=== PATIENT | female | born 1955 | race Caucasian/White ===

== ENCOUNTER 2025-03-18 19:18 | Inpatient (IN) | payer MEDICARE, BC ==
[~2025-03-18] VITALS: Ht 165.1 cm; Wt 68.0 kg
[2025-03-18 20:41] LABS: PLATELET COUNT (AUTO) 246 K/uL (150-450); RED BLOOD CELL COUNT(AUTO) 4.65 MIL/uL (4.0-5.2); RED CELL DISTRIBUTION WIDTH 15.1 % (11.5-15.0); WHITE BLOOD COUNT (AUTO) 5.3 K/uL (4.3-11.0)
[2025-03-18 20:51] LABS: ASPARTATE AMINOTRANSFERASE 9 U/L (15-37); CALCIUM, SERUM 8.7 mg/dL (8.5-10.1); CREATININE 0.6 mg/dL (0.6-1.3); SODIUM SERUM 140 mmol/L (136-145); TOTAL PROTEIN, SERUM 7.0 g/dL (6.4-8.2); UREA NITROGEN, BLOOD 17 mg/dL (7-18)
[2025-03-18 22:14] LABS: APPEARANCE,URINE CLEAR (CLEAR); BLOOD, URINE 1+ Ery/uL (NEGATIVE); LEUKOCYTE ESTERASE ,URINE 1+ (NEGATIVE); NITRITE, URINE NEGATIVE (NEGATIVE); UGLUCOSE NEGATIVE (NEGATIVE)
[2025-03-18 22:26] LABS: ADD URINE CULTURE YES; SQUAMOUS EPITHELIAL CELL,UR Few /HPF (None Seen)
[2025-03-18 22:31] LABS: AMPHETAMINE, URINE NEGATIVE (NEGATIVE); BARBITURATE, URINE NEGATIVE (NEGATIVE); BENZODIAZEPINE, URINE POSITIVE (NEGATIVE); CANNABINOID, URINE NEGATIVE (NEGATIVE); COCCAINE, URINE NEGATIVE (NEGATIVE); OPIATE, URINE NEGATIVE (NEGATIVE)
[2025-03-18] MEDS ORDERED: ACET325C7 PO (22:31)
[2025-03-18] MEDS ORDERED: DIVA250T4 PO (22:31)
[2025-03-18] MEDS ORDERED: BUDE0.5A4 NEB (22:31)
[2025-03-18] MEDS ORDERED: BACL5TAB PO (22:31)
[2025-03-18] MEDS ORDERED: DONE5TAB34 PO ×2 (22:31)
[2025-03-18] MEDS ORDERED: GABA-532 PO (22:31)
[2025-03-18] MEDS ORDERED: ALPR0.5T PO ×2 (22:46)
[2025-03-18] MEDS ORDERED: PANT40TA49 PO (22:46)
[2025-03-18] MEDS ORDERED: MEMA5TAB42 PO (22:46)
[2025-03-18] MEDS ORDERED: TEMA30CA PO (22:46)
[2025-03-18] MEDS ORDERED: ONDA4TAB11 PO (22:46)
[2025-03-18] MEDS ORDERED: VENL75TA4 PO (22:46)
[2025-03-18] MEDS ORDERED: RIZA10TA27 PO (22:46)
[2025-03-19] VITALS (8 sets, daily range): BP systolic 117–140; BP diastolic 78–92; TEMP 97.8–97.9; O2SAT 97–99
[2025-03-19] MEDS ORDERED: CEFTRIAXONE 1 G in IV D5W 50 ML IV ONE
[2025-03-19] MEDS ORDERED: NITROFURANTOIN/MONOHYDRATE MACROCRYSTALS 100 MG CAPSULE ONE (00:55)
[2025-03-19] MEDS: NITROFURANTOIN/MONOHYDRATE MACROCRYSTALS 100 MG CAPSULE PO ONE (01:02)
[2025-03-19] MEDS: LIDOCAINE 5% (PATCH) 1 EA PATCH TP SCH ×2 (01:30)
[2025-03-19] MEDS ORDERED: POLYVINYL ALCOHOL 15 ML BOTTLE EACHEYE PRN ×2 (01:30→15:00)
[2025-03-19] MEDS ORDERED: ZOLPIDEM TARTRATE 5 MG TABLET PO PRN ×2 (02:00)
[2025-03-19] MEDS ORDERED: MAGNESIUM HYDROXIDE 30 ML UDC PO PRN (02:00)
[2025-03-19] MEDS ORDERED: MAG HYDROX/AL HYDROX/SIMETH 30 ML UDC PO PRN (02:00)
[2025-03-19] MEDS: BLOOD SUGAR DIAGNOSTIC 1 EACH STRIP IN ONE (02:10)
[2025-03-19] MEDS: LORAZEPAM 1 MG TABLET PO PRN (02:43)
[2025-03-19] MEDS ORDERED: RIZATRIPTAN BENZOATE PO SCH (03:00)
[2025-03-19] MEDS: CHOLECALCIFEROL 1,000 UNIT TABLET (VIT D3) PO SCH (08:28)
[2025-03-19] MEDS: BACLOFEN (10 MG) 10 MG TABLET PO SCH (08:28)
[2025-03-19] MEDS: NITROFURANTOIN/MONOHYDRATE MACROCRYSTALS 100 MG CAPSULE PO SCH (08:28)
[2025-03-19] MEDS: PANTOPRAZOLE 40 MG TABLET.DR PO SCH (08:28)
[2025-03-19] MEDS: MULTIVITAMINS,THERAGRAN 1 UDTAB TABLET PO SCH (08:28)
[2025-03-19] MEDS: MEMANTINE HCL 5 MG TABLET PO SCH (08:28)
[2025-03-19] MEDS: LISINOPRIL (20MG) 20 MG TABLET PO SCH (08:29)
[2025-03-19] MEDS: PROSOURCE / PROSTAT (PYXIS) 30 ML UDC GT SCH (08:57)
[2025-03-19] MEDS: DONEPEZIL 5 MG TABLET PO SCH ×2 (08:58→21:20)
[2025-03-19] MEDS ORDERED: POLY15DR31 EACHEYE (09:11)
[2025-03-19] MEDS ORDERED: AMIN30LI2 PO (09:11)
[2025-03-19] MEDS ORDERED: MULT-213 PO (09:11)
[2025-03-19] MEDS ORDERED: CHOL100062 PO (09:11)
[2025-03-19] MEDS ORDERED: LIDO1ADH82 TD (09:11)
[2025-03-19] MEDS ORDERED: MEGE400O6 PO (09:11)
[2025-03-19] MEDS ORDERED: LISI20TA30 PO (09:11)
[2025-03-19] MEDS: OLANZAPINE 10 MG VIAL IM ONE (09:18)
[2025-03-19] MEDS ORDERED: DIVALPROEX SODIUM 250 MG TABLET.DR PO SCH (10:00)
[2025-03-19] MEDS ORDERED: LORAZEPAM 1 MG TABLET PO PRN (10:30)
[2025-03-19] MEDS: BUDESONIDE RESPULE INH 0.5 MG/2 ML AMPUL.NEB NEB SCH (10:31)
[2025-03-19] MEDS: DIVALPROEX SODIUM 125 MG CAP.SPRINK PO SCH (11:03)
[2025-03-19] MEDS: GABAPENTIN 100 MG CAPSULE PO SCH (12:59)
[2025-03-19] MEDS ORDERED: LISINOPRIL (20MG) 20 MG TABLET PO SCH (15:00)
[2025-03-19] MEDS ORDERED: PANTOPRAZOLE 40 MG TABLET.DR PO SCH (15:00)
[2025-03-19] MEDS ORDERED: CHOLECALCIFEROL 1,000 UNIT TABLET (VIT D3) PO SCH (15:00)
[2025-03-19] MEDS ORDERED: PROSOURCE / PROSTAT (PYXIS) 30 ML UDC PO SCH (15:00)
[2025-03-19] MEDS ORDERED: ONDANSETRON 4 MG TAB.RAPDIS PO SCH (15:00)
[2025-03-19] MEDS ORDERED: MULTIVIT W/MINERALS 1 TAB TABLET PO SCH (15:00)
[2025-03-19] MEDS ORDERED: LIDOCAINE 5% (PATCH) 1 EA PATCH TP SCH (15:00)
[2025-03-19] MEDS ORDERED: MEGESTROL ACETATE SUSP 400 MG/10 ML UDC PO SCH (15:00)
[2025-03-19] MEDS: OLANZAPINE 2.5 MG TABLET PO SCH (16:08)
[2025-03-20] VITALS (7 sets, daily range): BP systolic 107–108; BP diastolic 73–85; TEMP 97.9–98.2; O2SAT 93–100
[2025-03-20 07:31] LABS: CREATININE 0.6 mg/dL (0.6-1.3)
[2025-03-20 07:34] LABS: ASPARTATE AMINOTRANSFERASE 9.0 U/L (15-37); CALCIUM, SERUM 8.8 mg/dL (8.5-10.1); CREATININE 0.6 mg/dL (0.6-1.3); SODIUM SERUM 147.0 mmol/L (136-145); TOTAL PROTEIN, SERUM 6.8 g/dL (6.4-8.2); UREA NITROGEN, BLOOD 15.0 mg/dL (7-18)
[2025-03-20 07:38] LABS: LDL 149 mg/dL (0-99)
[2025-03-20] MEDS: PROSOURCE / PROSTAT (PYXIS) 30 ML UDC PO SCH (08:34)
[2025-03-20] MEDS: MULTIVIT W/MINERALS 1 TAB TABLET PO SCH (08:38)
[2025-03-20] MEDS: PANTOPRAZOLE 40 MG TABLET.DR PO SCH (08:38)
[2025-03-20] MEDS: MEGESTROL ACETATE SUSP 400 MG/10 ML UDC PO SCH (08:38)
[2025-03-20] MEDS: CHOLECALCIFEROL 1,000 UNIT TABLET (VIT D3) PO SCH (08:38)
[2025-03-20] MEDS: VENLAFAXINE XR 75 MG CAP.SR.24H PO SCH (08:38)
[2025-03-20] MEDS: LISINOPRIL (20MG) 20 MG TABLET PO SCH (08:39)
[2025-03-20] MEDS: Z GUARD REMEDY 4 OZ OINT TP SCH (17:13)
[2025-03-21] VITALS (7 sets, daily range): BP systolic 101–107; BP diastolic 66–78; TEMP 97.8–98.2; O2SAT 95–100
[2025-03-21] MEDS: LIDOCAINE 5% (PATCH) 1 EA PATCH TP ONE (01:47)
[2025-03-21] MEDS: SULFAMETH/TRIMETH 800/160 MG 1 UDTAB TABLET PO SCH (21:29)
[2025-03-22 08:00] VITALS: BP 125/74; TEMP 97.8; O2SAT 95
[2025-03-22 08:30] VITALS: O2SAT 96
[2025-03-22 08:46] VITALS: O2SAT 98
[2025-03-22] MEDS: LIDOCAINE 5% (PATCH) 1 EA PATCH TP SCH ×2 (09:00)
[2025-03-22] MEDS: ACETAMINOPHEN 325 MG TABLET PO PRN (12:51)
[2025-03-22 16:04] VITALS: BP 101/68; TEMP 98.6; O2SAT 99
[2025-03-22] MEDS: SUMATRIPTAN SUCCINATE 100 MG TABLET PO PRN (18:30)
[2025-03-22 20:21] VITALS: BP 110/68; TEMP 98.8; O2SAT 96
[2025-03-23 08:12] VITALS: O2SAT 96
[2025-03-23 08:27] VITALS: O2SAT 98
[2025-03-23 08:35] VITALS: BP 144/74; TEMP 97.8; O2SAT 99
[2025-03-23 16:00] VITALS: BP 105/67; TEMP 98.1; O2SAT 96
[2025-03-23 19:49] VITALS: BP 108/64; TEMP 98; O2SAT 97
[2025-03-24 08:00] VITALS: BP 120/74; TEMP 97.8; O2SAT 98
[2025-03-24] MEDS: LIDOCAINE 5% (PATCH) 1 EA PATCH TP SCH (09:39)
[2025-03-24 16:11] VITALS: BP 111/79; TEMP 98.6; O2SAT 95
[2025-03-24 17:05] VITALS: O2SAT 97
[2025-03-24 17:20] VITALS: O2SAT 99
[2025-03-24 19:53] VITALS: BP 101/62; TEMP 98.2; O2SAT 96
[2025-03-25 08:00] VITALS: BP 117/75; TEMP 97.8; O2SAT 95
[2025-03-25 16:00] VITALS: BP 113/68; TEMP 98.4; O2SAT 97
[2025-03-25 20:00] VITALS: BP 108/68; TEMP 97.9; O2SAT 97
[2025-03-26 08:00] VITALS: BP 111/82; TEMP 98.4; O2SAT 96
[2025-03-26 16:00] VITALS: BP 115/91; TEMP 98.4; O2SAT 95
[2025-03-27 08:00] VITALS: BP 105/75; TEMP 97.7; O2SAT 97
[2025-03-27 09:00] VITALS: BP 105/75
== END 2025-03-27 15:10 | DRG 885 ==
LOC: ER 19:21 → GPS 03-19 00:36
PROVIDERS: ADMIT Psychiatry & Neurology Psychiatry; ATTEND Nurse Practitioner Acute Care
DX: F31.5 Bipolar disorder, current episode depressed, severe, with psychotic features (principal); G93.41 Metabolic encephalopathy; N39.0 Urinary tract infection, site not specified; E44.1 Mild protein-calorie malnutrition; F03.92 Unspecified dementia, unspecified severity, with psychotic disturbance; F03.93 Unspecified dementia, unspecified severity, with mood disturbance; F03.94 Unspecified dementia, unspecified severity, with anxiety; F29 Unspecified psychosis not due to a substance or known physiological condition; E86.0 Dehydration; B96.89 Other specified bacterial agents as the cause of diseases classified elsewhere; E88.09 Other disorders of plasma-protein metabolism, not elsewhere classified; G89.29 Other chronic pain; K21.9 Gastro-esophageal reflux disease without esophagitis; I10 Essential (primary) hypertension; Z87.828 Personal history of other (healed) physical injury and trauma; Z85.3 Personal history of malignant neoplasm of breast; Z87.891 Personal history of nicotine dependence; G43.909 Migraine, unspecified, not intractable, without status migrainosus; B96.1 Klebsiella pneumoniae [K. pneumoniae] as the cause of diseases classified elsewhere
CPT/HCPCS: 36415; 70450-TC; 80048-TC; 80053-TC; 80061-TC; 80076-TC; 81001; 82565-TC; 82962-TC; 85025-TC; 87086-TC; 87186-TC; 92526; 92611; 94762-TC; 97112-TC; 97530-TC; J0696; J3490; J7060